=== PATIENT | female | born 1990 | race African-American/Black ===

== ENCOUNTER 2021-10-31 18:39 | Emergency (ER) | payer OTHER ==
[~2021-10-31] VITALS: Ht 162.6 cm; Wt 56.8 kg
[2021-10-31] MEDS ORDERED: ACET-3385 PO (18:43)
[2021-10-31] MEDS ORDERED: IBUP-1506 PO (18:43)
[2021-10-31 18:45] VITALS: BP 117/79
[2021-10-31] MEDS ORDERED: IBUPROFEN 600 MG TABLET PO ONE (20:30)
[2021-10-31] MEDS ORDERED: ACETAMINOPHEN 500 MG TABLET PO ONE (20:30)
[2021-10-31] MEDS ORDERED: AMOX TR/POT CLAV 875 MG/125 MG TABLET PO ONE (20:30)
[2021-10-31] MEDS ORDERED: AMOX1TAB16 PO (20:36)
== END 2021-10-31 20:52 | disposition home or self-care (01) ==
LOC: EMS 18:39
DX: K08.89 Other specified disorders of teeth and supporting structures (principal); Z79.899 Other long term (current) drug therapy
CPT/HCPCS: 99284; Z7502; Z7610

== ENCOUNTER 2021-11-19 18:21 | Emergency (ER) | payer OTHER ==
[~2021-11-19] VITALS: Ht 170.2 cm; Wt 55.0 kg
[~2021-11-19 18:21] MED LIST: ACET-3385 PO; AMOX1TAB16 PO; IBUP-1506 PO
[2021-11-19 18:45] VITALS: BP 132/84
[2021-11-19 19:18] LABS: COVID AG,FIA SOURCE NASOPHARYNGEAL
== END 2021-11-19 20:21 | disposition home or self-care (01) ==
LOC: EMS 18:24
DX: Z20.822 Contact with and (suspected) exposure to COVID-19 (principal)
CPT/HCPCS: 99283